=== PATIENT | female | born 1935 | race Caucasian/White ===

== ENCOUNTER 2022-02-05 11:23 | Emergency (ER) | payer OTHER ==
[~2022-02-05] VITALS: Ht 165.1 cm; Wt 68.0 kg
[2022-02-05] MEDS ORDERED: SODIUM CHLORIDE 0.9% 1,000 ML IV ONE (12:30)
[2022-02-05 12:47] LABS: BASOPHILS % 0.2 % (0.0-2.0); EOSINOPHILS % 0.5 % (0.0-5.0); HEMOGLOBIN. 13.4 g/dL (12.0-16.0); LYMPHOCYTES % 16.4 % (20.0-50.0); MEAN CORPUSCULAR VOLUME 96.3 fL (81.0-99.0); MEAN PLATELET VOLUME 7.2 fl (7.4-10.4); MONOCYTES % 6.7 % (2.0-8.0); NEUTROPHILS % 76.2 % (40.0-76.0); PLATELET 299 x1000/uL (130-400); RED BLOOD CELL COUNT 4.05 mill/uL (4.2-5.4); RED CELL DISTRIBUTION WIDTH 13.7 % (11.6-14.6)
[2022-02-05 12:54] LABS: CHLORIDE 102 mEq/L (98-107)
[2022-02-05 12:55] LABS: PROTHROMBIN TIME 10.8 sec (9.6-11.0)
[2022-02-05 14:00] VITALS: BP 130/51
== END 2022-02-05 16:49 | disposition short-term general hospital (02) ==
LOC: ER 11:23
DX: R62.7 Adult failure to thrive (principal); E87.20 Acidosis, unspecified; E86.0 Dehydration; I10 Essential (primary) hypertension
CPT/HCPCS: 36415; 71045; 80053; 83605; 83690; 84484; 85025; 85610; 87040; 93005; 96360; 99285; J7030